=== PATIENT | female | born 1995 | race Caucasian/White ===

== ENCOUNTER 2018-05-25 16:04 | Emergency (ER) | payer OTHER ==
--- NOTE | 2018-05-25 17:09 | ER ---
Nurse's Notes [facility] Department Name: Vida Malcolm Age: 22 yrs Sex: Female : 1995 Arrival Date: 05/25/2018 Time: 16:07 Bed 13 Private MD: None, None Diagnosis: Unspecified abdominal pain Presentation: 05/25 16:27 Presenting complaint: Patient states: generalized abd cramping that began April 2018. aa5 Pt also reports N/V/D. Transition of care: patient was not received from another setting of care. Onset of symptoms was May 2018. Risk Assessment: Do you want to hurt yourself or someone else? Patient reports no desire to harm self or others. Initial Sepsis Screen: Does the patient meet any 2 criteria? No. Patient's initial sepsis screen is negative. Does the patient have a suspected source of infection? No. Patient's initial sepsis screen is negative. Care prior to arrival: None. 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 - Social history:: Smoking status: Patient/guardian denies using tobacco. - Ebola Screening: : No symptoms or risks identified at this time. Screenin:50 Abuse screen: Denies threats or abuse. Denies injuries from another. Nutritional jl7 screening: No deficits noted. Tuberculosis screening: No symptoms or risk factors identified. 17:38 Fall Risk None identified. jl7 Assessment: 16:50 General: Appears in no apparent distress. uncomfortable, Behavior is calm, cooperative, jl7 appropriate for age. Pain: Complains of pain in abdomen Pain does not radiate. Pain currently is 8 out of 10 on a pain scale. Quality of pain is described as crampy, Pain began April 2018 Is continuous. Neuro: Level of Consciousness is awake, alert, obeys commands, Oriented to person, place, time, situation. Cardiovascular: Patient's skin is warm and dry. Respiratory: Airway is patent Respiratory effort is even, unlabored, Respiratory pattern is regular, symmetrical. GI: Stools are reported to be normal. Last BM was May 25, 2018. Bowel sounds present X 4 quads. Abd is soft X 4 quads Abdomen is tender to palpation X 4 quads. Patient currently denies constipation, diarrhea. : Urine is cloudy, Reports burning with urination. EENT: No signs and/or symptoms were reported regarding the EENT system. Derm: Skin is pink, warm \T\ dry. Musculoskeletal: No signs and/or symptoms reported regarding the musculoskeletal system. 17:30 Reassessment: pt will be discharged after 15 min shot time. 7 Vital Signs: 16:28 BP 135 / 79; Pulse 85; Resp 16 S; Temp 98.5(TE); Pulse Ox 98% ; Weight 122.47 kg (R); aa5 Height 5 ft. 9 in. (175.26 cm) (R); Pain 8/10; 17:47 BP 134 / 73; Pulse 75; Resp 16; Pulse Ox 100% ; jl7 16:28 Body Mass Index 39.87 (122.47 kg, 175.26 cm) aa5 ED Course: 16:07 Patient arrived in ED. mr 16:08 None, None is Private Physician. mr 16:27 Triage completed. aa5 16:27 Arm band placed on. aa5 16:30 [facility]oc[facility] Dove [facility]C [facility]. snw 16:30 All [place] MD is Attending Physician. snw 16:34 Fran Ornelas RN is Primary Nurse. jl7 16:50 Patient has correct armband on for positive identification. Bed in low position. Call jl light in reach. Side rails up X 1. Pulse ox on. NIBP on. 17:01 Urine --Ancillary (enter results) Sent. 5 17:01 Urine Dipstick--Ancillary (enter results) Sent. 5 17:01 Urine Microscopic Only Sent. 5 17:03 Urine collected: clean catch specimen, clear. 5 17:48 No provider procedures requiring assistance completed. Patient did not have IV access [facility] during this emergency room visit. Administered Medications: 17:30 Drug: fentaNYL (PF) 50 mcg Route: IM; Site: left deltoid; jl7 17:47 Follow up: Response: No adverse reaction; Pain is decreased jl7 17:30 Drug: Phenergan 25 mg Route: IM; Site: right deltoid; jl7 17:47 Follow up: Response: No adverse reaction jl7 Outcome: 17:08 Discharge ordered by MD. ramos 17:48 Discharged to home ambulatory, with family. jl7 17:48 Condition: stable 17:48 Discharge instructions given to patient, family, Instructed on discharge instructions, follow up and referral plans. medication usage, Demonstrated understanding of instructions, follow-up care, medications, Prescriptions given X 2. 17:48 Patient left the ED. jl7 Signatures: Jocelyn Dove, DIRECTOR OF CARDIOPULMONARY SERVICES-C DIRECTOR OF CARDIOPULMONARY SERVICES-Csnw Griselda Elizalde Audri, RN RN Griselda Thacker Jahala, RN RN jl7 Corrections: (The following items were deleted from the chart) 16:29 16:28 PMHx: None; helena malik 17:36 03:00 fentaNYL (PF) 50 mcg IM in left deltoid jl7 jl7 17:37 17:00 fentaNYL (PF) 50 mcg IM in left deltoid jl7 jl7
--- NOTE | 2018-05-25 17:09 | EDPHYS ---
Physician Documentation [facility] Name: Vida Malcolm Age: 22 yrs Sex: Female : 1995 Arrival Date: 05/25/2018 Time: 16:07 Bed 13 Private MD: None, None ED Physician All [place] HPI: 05/25 17:11 This 22 yrs old Female presents to ER via Ambulatory with complaints of snw Abdominal Pain. 17:11 The patient presents with abdominal pain in the epigastric area, in the upper abdomen. snw Onset: The symptoms/episode began/occurred 2 month(s) ago, and became persistent. The symptoms do not radiate. Associated signs and symptoms: Pertinent positives: nausea and vomiting. The symptoms are described as crampy. Severity of pain: At its worst the pain was moderate. It is unknown whether or not the patient has had similar symptoms in the past. The patient has been recently seen by a physician: the patient's primary care provider, Dr. Armstrong yesterday, with similar presenting complaints, lab tests were done, but the patient's symptoms have persisted. 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 - Social history:: Smoking status: Patient/guardian denies using tobacco. - Ebola Screening: : No symptoms or risks identified at this time. ROS: 17:10 Constitutional: Negative for fever, chills, and weight loss, Eyes: Negative for injury, snw pain, redness, and discharge, ENT: Negative for injury, pain, and discharge, Neck: Negative for injury, pain, and swelling, Cardiovascular: Negative for chest pain, palpitations, and edema, Respiratory: Negative for shortness of breath, cough, wheezing, and pleuritic chest pain, Back: Negative for injury and pain, : Negative for injury, bleeding, discharge, and swelling, MS/Extremity: Negative for injury and deformity, Skin: Negative for injury, rash, and discoloration, Neuro: Negative for headache, weakness, numbness, tingling, and seizure. 17:10 Abdomen/GI: Positive for abdominal pain, nausea, vomiting. Exam: 17:10 Constitutional: This is a well developed, obese patient who is awake, alert, and in no snw acute distress. Head/Face: Normocephalic, atraumatic. Eyes: Pupils equal round and reactive to light, extra-ocular motions intact. Lids and lashes normal. Conjunctiva and sclera are non-icteric and not injected. Cornea within normal limits. Periorbital areas with no swelling, redness, or edema. ENT: Nares patent. No nasal discharge, no septal abnormalities noted. Tympanic membranes are normal and external auditory canals are clear. Oropharynx with no redness, swelling, or masses, exudates, or evidence of obstruction, uvula midline. Mucous membranes moist. Neck: Trachea midline, no thyromegaly or masses palpated, and no cervical lymphadenopathy. Supple, full range of motion without nuchal rigidity, or vertebral point tenderness. No Meningismus. Chest/axilla: Normal chest wall appearance and motion. Nontender with no deformity. No lesions are appreciated. Cardiovascular: Regular rate and rhythm with a normal S1 and S2. No gallops, murmurs, or rubs. Normal PMI, no JVD. No pulse deficits. Respiratory: Lungs have equal breath sounds bilaterally, clear to auscultation and percussion. No rales, rhonchi or wheezes noted. No increased work of breathing, no retractions or nasal flaring. Back: No spinal tenderness. No costovertebral tenderness. Full range of motion. Skin: Warm, dry with normal turgor. Normal color with no rashes, no lesions, and no evidence of cellulitis. MS/ Extremity: Pulses equal, no cyanosis. Neurovascular intact. Full, normal range of motion. Neuro: Awake and alert, GCS 15, oriented to person, place, time, and situation. Cranial nerves II-XII grossly intact. Motor strength 5/5 in all extremities. Sensory grossly intact. Cerebellar exam normal. Normal gait. Psych: Awake, alert, with orientation to person, place and time. Behavior, mood, and affect are within normal limits. 17:10 Abdomen/GI: Inspection: obese Bowel sounds: normal, Palpation: mild abdominal tenderness, in the umbilical area, right upper quadrant and left upper quadrant. Vital Signs: 16:28 BP 135 / 79; Pulse 85; Resp 16 S; Temp 98.5(TE); Pulse Ox 98% ; Weight 122.47 kg (R); aa5 Height 5 ft. 9 in. (175.26 cm) (R); Pain 8/10; 17:47 BP 134 / 73; Pulse 75; Resp 16; Pulse Ox 100% ; jl7 16:28 Body Mass Index 39.87 (122.47 kg, 175.26 cm) aa5 MDM: 16:32 Patient medically screened. snw 17:11 Data reviewed: vital signs, nurses notes. Data interpreted: Pulse oximetry: on room air snw is 98 %. Interpretation: normal. Counseling: I had a detailed discussion with the patient and/or guardian regarding: the historical points, exam findings, and any diagnostic results supporting the discharge/admit diagnosis, lab results, the need for outpatient follow up, to return to the emergency department if symptoms worsen or persist or if there are any questions or concerns that arise at home. Special discussion: Based on the patient's Hx, exam, and Dx evaluation, there is no indication for emergent surgery or inpatient Tx. It is understood by the patient/guardian that if the Sx's persist or worsen they need to return immediately for re-evaluation. Based on the history and exam findings, there is no indication for further emergent testing or inpatient evaluation. I discussed with the patient/guardian the need to see the primary care provider for further evaluation of the symptoms. 17:12 ED course: Pt had labs drawn for same c/o yest. Symptoms no different. Pt VSS. Will snw treat pain/nausea and give pt time to f/u. 05/25 16:31 Order name: Urine Microscopic Only snw 05/25 16:56 Order name: Urine Dipstick--Ancillary (enter results) eb 05/25 16:31 Order name: Urine Test (obtain specimen); Complete Time: 16:50 snw 05/25 16:56 Order name: Urine --Ancillary (enter results) 05/25 16:31 Order name: Urine Dipstick-Ancillary (obtain specimen); Complete Time: 16:50 snw Administered Medications: 17:30 Drug: fentaNYL (PF) 50 mcg Route: IM; Site: left deltoid; jl7 17:47 Follow up: Response: No adverse reaction; Pain is decreased jl7 17:30 Drug: Phenergan 25 mg Route: IM; Site: right deltoid; jl7 17:47 Follow up: Response: No adverse reaction jl7 Disposition: 18:59 Co-signature as Attending Physician, All [place] MD I agree with the assessment and kdr plan of care. Disposition: 05/25/18 17:08 Discharged to Home. Impression: Unspecified abdominal pain. - Condition is Stable. - Discharge Instructions: Abdominal Pain, Adult, Biliary Colic, Adult, Fat and Cholesterol Restricted Diet. - Prescriptions for Bentyl 20 mg Oral Tablet - take 1 tablet by ORAL route every 6 hours As needed; 20 tablet. Zofran 4 mg Oral Tablet - take 1 tablet by ORAL route every 12 hours As needed; 20 tablet. - Work release form, Medication Reconciliation Form, Thank You Letter, Antibiotic Education, Prescription Opioid Use form. - Follow up: Private Physician; When: 2 - 3 days; Reason: Recheck today's complaints, Continuance of care, Re-evaluation by your physician. Follow up: Emergency Department; When: As needed; Reason: Worsening of condition. Signatures: Dispatcher [employer] EDIA All [place] MD MD [facility] Jocelyn Dove, GARMENT PARTS CUTTER MACHINE-C GARMENT PARTS CUTTER MACHINE-Csnw Kathy White, RN RN aa5 Fran Ornelas RN RN jl7 Corrections: (The following items were deleted from the chart) 16:29 16:28 PMHx: None; helena malik 17:48 17:08 05/25/2018 17:08 Discharged to Home. Impression: Unspecified abdominal pain. jl7 Condition is Stable. Forms are Medication Reconciliation Form, Thank You Letter, Antibiotic Education, Prescription Opioid Use. Follow up: Private Physician; When: 2 - 3 days; Reason: Recheck today's complaints, Continuance of care, Re-evaluation by your physician. Follow up: Emergency Department; When: As needed; Reason: Worsening of condition. snw
[2018-05-25] MEDS ORDERED: FENTANYL CITR 100 MCG/2 ML ONE (17:24)
[2018-05-25] MEDS ORDERED: PROMETHAZINE HCL 50 MG/ML AMP IM ONE (17:25)
[2018-05-25 17:46] LABS: Urine Blood NEGATIVE (NEG); Urine Glucose NEGATIVE (NEG); Urine Protein NEGATIVE (NEG)
[2018-05-25 17:49] LABS: Urine Bacteria <20 /HPF (<20); Urine Culture Reflex Order NOT NEEDED; Urine RBC <5 /HPF (NONE SEEN)
[2018-05-25 17:50] LABS: Urine Mucus 2+ /HPF (NONE SEEN)
== END 2018-05-25 17:48 | disposition home or self-care (01) ==
LOC: ER 16:04
DX: R10.9 Unspecified abdominal pain (principal); F31.9 Bipolar disorder, unspecified; F32.9 Major depressive disorder, single episode, unspecified; F90.9 Attention-deficit hyperactivity disorder, unspecified type
CPT/HCPCS: 81003; 81015; 81025; 96372; 99284; J2550; J3010

== ENCOUNTER 2024-10-01 05:38 | Emergency (ER) | payer OTHER, SELFPAY ==
--- OUTSIDE RECORDS SUMMARY | 2024-10-01 05:40 | XMS REPORT | Continuity of Care Document ---
Author Name Unknown Address [address] [facility] [address] [place] [address] [facility] Address [address] [facility] [address] [place] [address] Care Team Providers Care Head Of Marketing Analytics Name Role Phone PCP, PATIENT DOES NOT HAVE A Primary Care Physic dagmar Unavailable JAYCE LOPEZ Attending Clinician Unavailable JOHN JAYCECORDELIA MONCADA Attending Clinician Unavailable Doctor Unassigned, [place] Attending Clinician U GABBY Recinos Attending Clinician Unavailable AMBREEN_FARHANA Attending Clinician Unavailable Gabby Carney PA-C Attending Clinician [phone], [facility] Attending Clinician Unavailable DYLON CORREA Attending Clinician Unavail able ANNA GATES Attending Clinician Unavailable Dylon Correa DO Attending Clinician [phone] Akincarolyn Emily OLIVIER Attending Clinician + EMILY SAUL Attending Clinician Unavail able [facility] UnaJacy Porter MD Attending Clinician [phone] Hallie Ibrahim Attending Clinician + [phone] HALLIE ASHER Attending Clinician Unavailab 3, [facility] Room Attending Clinician Unavailchantel Mills MD, Lopez Attending Clinician + JACY GREER Admitting Clinician Unavailyeimi ANTONIO Admitting Clinician Unavailable Jacy Greer MD Admitting Clinician [phone] Payers Payer Name Policy Type Policy Number Effective Date Expirati on Date Source [facility] [id number] 2020 00:00:00 Problems Condition Name Condition Details Condition Category Status Onset Date Resolution Date Last Treatment Date Treating Clinician Comments Source Well woman exam Well woman exam Disease Active 11-07 00:00: 00 [facility] Obesity (BMI 30-39.9) Obesity (BMI 30-39.9) Disease Active 11-07 00:00: 00 [facility] Routine follow-up Routine follow-up Disease Active 10-17 00:00: 00 [facility] History of tubal ligation History of tubal ligation Disease Active 09-25 00:00: 00 [facility] History of depression History of depression Disease Active 2019-09 00:00: 00 [facility] History of anxiety History of anxiety Disease Active 2019-09 00:00: 00 [facility] History of posttrauma tic stress disorder (PTSD) History of posttrauma tic stress disorder (PTSD) Disease Active 2019-09 00:00: 00 [facility] History of schizophre edgardo History of schizophre edgardo Disease Active 2019-09 00:00: 00 [facility] History of bipolar disorder History of bipolar disorder Disease Active 2019-09 00:00: 00 Overview: Formattin g of this note might be different from the original. Reports she was on meds d/c when she became [facility] Allergies, Adverse Reactions, Alerts Allergy Name Allergy Type Status Severity Reaction(s) Onset Date Inactive Date Treating Clinician Comments Source NO KNOWN ALLERGIE S Drug Class Active [facility] Social History Social Habit Start Date Stop Date Quantity Comments Source Gender identity [facility] Exposure to SARS-CoV-2 (event) 2021-10-19 00:00:00 2021-11-18 13:58:00 Not sure [facility] History of Social function 2021-11-18 00:00:00 2021-11-18 00:00:00 [facility] Tobacco use and exposure 2020-08-25 00:00:00 2020-08-25 00:00:00 Smokeless tobacco non-user [facility] Alcohol intake 2020-08-25 00:00:00 2020-08-25 00:00:00 Ex-drinker (finding) [facility] Sex Assigned At 1995 00:00:00 1995 00:00:00 [facility] Smoking Status Start Date Stop Date Source Never smoked tobacco [facility] Medications Ordered Medication Name Filled Medication Name Start Date Stop Date Current Medication? Ordering Clinician Indication Dosage Frequency Signature (SIG) Comments Components Source traZODone 100 mg tablet 03-16 18:07: 58 03-16 00:00 :00 No trazodone 100 mg tablet Take 3 tablets every day by oral route. [facility] QUEtiapine (SEROQUEL) 25 mg tablet 03-16 15:24: 32 Yes 25mg Take 1 tablet by mouth in the morning and 1 tablet in the evening. [facility] traZODone 100 mg tablet 11-18 14:29: 38 Yes trazodone 100 mg tablet Take 3 tablets every day by oral route. [facility] citalopram (CELEXA) 40 mg tablet 11-18 14:06: 57 11-18 00:00 :00 No Celexa 40 mg tablet Take 1 tablet every day by oral route. [facility] aripiprazol e (ABILIFY DISCMELT ORAL) 09-30 00:00: 00 Yes [facility] citalopram 20 mg tablet 11-05 00:00: 00 11-18 00:00 :00 No [facility] vitamin w/FA tablet 09-28 00:00: 00 11-18 00:00 :00 No [id number] 1{tbl} Take 1 tablet by mouth daily. [facility] docusate calcium 240 mg capsule 09-28 00:00: 00 11-18 00:00 :00 No [id number] 240mg Take 1 capsule by mouth once daily as needed for Constipati on. [facility] ferrous sulfate 325 mg (65 mg iron) tablet 09-28 00:00: 00 11-18 00:00 :00 No [id number] 325mg Take 1 tablet by mouth 2 (two) times daily. [facility] ibuprofen 600 mg tablet 09-28 00:00: 00 11-18 00:00 :00 No [id number] 600mg Take 1 tablet by mouth every 6 (six) hours as needed (Pain). Take with food or milk. [facility] vitamin w/FA tablet 09-28 00:00: 00 11-18 00:00 :00 No [id number] 1{tbl} Take 1 tablet by mouth daily. [facility] Immunizations Ordered Immunization Name Filled Immunization Name Date Status Comments Source HPV9 2023-03-16 00:00:00 Completed [facility] Influenza Virus Vaccine Quad IM, Preserv and ABX Free 6 MO-64 YRS 2021-11-18 00:00:00 Completed [facility] Influenza Virus Vaccine Quad IM, Preserv and ABX Free 6 MO-64 YRS 2021-11-18 00:00:00 Completed [facility] SARS-COV-2 COVID-19 PFIZER VACCINE 2020-12-17 00:00:00 Completed [facility] SARS-COV-2 COVID-19 PFIZER VACCINE 2020-12-17 00:00:00 Completed [facility] SARS-COV-2 COVID-19 PFIZER VACCINE 2020-11-26 00:00:00 Completed [facility] SARS-COV-2 COVID-19 PFIZER VACCINE 2020-11-26 00:00:00 Completed [facility] Influenza Virus Vaccine Quad .5 mL IM 6+ MO 2020-08-06 00:00:00 Completed [facility] TDAP (ADACEL) VACCINE 2020-08-06 00:00:00 Completed [facility] Influenza Virus Vaccine Quad .5 mL IM 6+ MO 2020-08-06 00:00:00 Completed [facility] TDAP (ADACEL) VACCINE 2020-08-06 00:00:00 Completed [facility] Influenza Virus Vaccine Quad .5 mL IM 6+ MO (FLUZONE/FLULAVAL/F LUARIX) Unknown Completed [facility] TDAP (ADACEL) VACCINE Unknown Completed [facility] SARS-COV-2 COVID-19 PFIZER VACCINE Unknown Completed [facility] Influenza Virus Vaccine Quad IM, Preserv and ABX Free 6 MO-64 YRS (FLUCELVAX) Unknown Completed [facility] HPV9 Unknown Completed [facility] Influenza Virus Vaccine Quad .5 mL IM 6+ MO (FLUZONE/FLULAVAL/F LUARIX) Unknown Completed [facility] TDAP (ADACEL) VACCINE Unknown Completed [facility] SARS-COV-2 COVID-19 PFIZER VACCINE Unknown Completed [facility] Influenza Virus Vaccine Quad IM, Preserv and ABX Free 6 MO-64 YRS (FLUCELVAX) Unknown Completed [facility] Influenza Virus Vaccine Quad .5 mL IM 6+ MO (FLUZONE/FLULAVAL/F LUARIX) Unknown Completed [facility] TDAP (ADACEL) VACCINE Unknown Completed [facility] Influenza Virus Vaccine Quad .5 mL IM 6+ MO (FLUZONE/FLULAVAL/F LUARIX) Unknown Completed [facility] TDAP (ADACEL) VACCINE Unknown Completed [facility] Influenza Virus Vaccine Quad .5 mL IM 6+ MO (FLUZONE/FLULAVAL/F LUARIX) Unknown Completed [facility] TDAP (ADACEL) VACCINE Unknown Completed [facility] Influenza Virus Vaccine Quad .5 mL IM 6+ MO (FLUZONE/FLULAVAL/F LUARIX) Unknown Completed [facility] TDAP (ADACEL) VACCINE Unknown Completed [facility] Influenza Virus Vaccine Quad .5 mL IM 6+ MO (FLUZONE/FLULAVAL/F LUARIX) Unknown Completed [facility] TDAP (ADACEL) VACCINE Unknown Completed [facility] Vital Signs Vital Name Observation Time Observation Value Comments Jluis colon Systolic blood pressure 2023-03-16 20:14:00 121 mm[Hg] [facility] Diastolic blood pressure 2023-03-16 20:14:00 82 mm[Hg] [facility] Heart rate 2023-03-16 20:14:00 81 /min Unive [facility] Body temperature 2023-03-16 20:14:00 36.78 Chanell [facility] Respiratory rate 2023-03-16 20:14:00 20 /min [facility] Body height 2023-03-16 20:14:00 175.3 cm [facility] Body weight 2023-03-16 20:14:00 131.18 kg [facility] BMI 2023-03-16 20:14:00 42.71 kg/m2 [facility] Oxygen saturation in Arterial blood by Pulse oximetry 2023-03-16 20:14:00 97 /min [facility] Systolic blood pressure 2021-11-18 19:27:00 126 mm[Hg] [facility] Diastolic blood pressure 2021-11-18 19:27:00 85 mm[Hg] [facility] Heart rate 2021-11-18 19:26:00 81 /min Unive [facility] Body temperature 2021-11-18 19:26:00 36.78 Chanell [facility] Respiratory rate 2021-11-18 19:26:00 20 /min [facility] Body height 2021-11-18 19:26:00 175.3 cm [facility] Body weight 2021-11-18 19:26:00 135.535 kg [facility] BMI 2021-11-18 19:26:00 44.13 kg/m2 [facility] Oxygen saturation in Arterial blood by Pulse oximetry 2021-11-18 19:26:00 100 /min [facility] Procedures Procedure Date / Time Performed Performing Clinician Source GARDASIL 9 (HPV 9V) VACCINE 2023-03-16 20:40:58 Jayce Lopez [facility] HEPATITIS B SURFACE ANTIGEN 2021-11-18 20:09:00 Gabby Carney [facility] HCV ANTIBODY 2021-11-18 20:09:00 [facility] POCT TEST 2021-11-18 19:35:00 Bertram Carney [facility] GC & CHLAMYDIA AMPLIFIED ASSAY 2021-11-18 19:35:00 Gabby Carney [facility] LAB ONLY PAP SMEAR-LIQUID BASED 2021-11-18 19:35:00 Gabby Carney [facility] TRICHOMONAS AMPLIFIED ASSAY 2021-11-18 19:35:00 Gabby Carney [facility] PAP SMEAR-LIQUID BASED-CP 2021-11-18 19:35:00 Gabby Carney [facility] FLU VACC ([id number]), 2-64 YRS, .5ML, IM, QUAD (FLUCELVAX) 2021-11-18 19:33:51 Gabby Carney [facility] Encounters Start Date/Time End Date/Time Encounter Type Admission Type Attending Clinicians Care Facility Care Department Encounter ID Source 2021-07-04 18:44:06 Outpatient P [facility] ISABELLE [id number] [facility] 2021-07-04 18:44:04 Outpatient [facility] [id number] [facility] 2024-03-26 15:00:00 2024-03-26 15:00:00 Outpatient JAYCE MILLER VIEN [facility] [id number] [facility] 2023-10-25 15:00:00 2023-10-25 15:00:00 Outpatient JAYCE MILLER [facility] [id number] [facility] 2023-09-16 15:00:00 2023-09-16 15:00:00 Outpatient R [facility] [id number] [facility] 2023-05-10 15:30:00 2023-05-10 15:30:00 Outpatient JAYCE MILLER [facility] [id number] [facility] 2023-04-25 15:00:00 2023-04-25 15:00:00 Outpatient R JAYCE LOPEZ [facility] [id number] [facility] 2023-04-21 15:00:00 2023-04-21 15:00:00 Outpatient R [facility] [id number] [facility] 2023-04-01 00:00:00 2023-04-01 00:00:00 Patient Secure Msg Doctor Unassigned, [place] [facility] [id number] 350.1.13.10 4.2.7.2.686 [id number] [facility] 2023-03-16 15:00:00 2023-03-16 15:42:39 Outpatient R JAYCE LOPEZ [facility] [id number] [facility] 2023-03-16 15:00:00 2023-03-16 15:42:39 Office Visit Jayce Lopez Saud [facility] [id number] 350.1.13.10 4.2.7.2.686 [id number] [facility] 2022-11-18 13:30:00 2022-11-18 13:30:00 Outpatient R STEPHANYMICHELLEGABBY [facility] [id number] [facility] 2022-03-30 12:26:00 2022-03-30 12:26:00 Outpatient AMBREEN_GRISELDA SOLIS [facility] [id number] [facility] Program 2021-11-27 00:00:00 2021-11-27 00:00:00 Patient Secure Msg Nieves [facility] 1.2.840.114 350.1.13.10 4.2.7.2.686 [id number] [facility] 2021-11-18 15:15:00 2021-11-18 15:30:00 Veterinary Surgery Technician Visit 2, [facility] Nieves Gabby [facility] 1.2.840.114 350.1.13.10 4.2.7.2.686 [id number] [facility] 2021-11-18 15:15:00 2021-11-18 15:15:00 Outpatient Uriel CARNEY GABBY [facility] [id number] [facility] 2021-11-18 14:00:00 2021-11-18 15:01:11 Office Visit Gabby Carney [facility] 1.2.840.114 350.1.13.10 4.2.7.2.686 [id number] [facility] 2021-11-18 14:00:00 2021-11-18 15:01:11 Outpatient Uriel CARNEY [facility] [id number] [facility] 2021-11-18 14:00:00 2021-11-18 15:01:11 [facility] [id number] 2021-11-11 10:00:00 2021-11-11 10:00:00 Outpatient Uriel CARNEY [facility] [id number] [facility] 2021-10-16 16:20:00 2021-10-16 16:20:00 Outpatient DYLON RYAN [facility] [id number] [facility] 2021-10-16 11:20:00 2021-10-16 11:20:00 Outpatient Uriel [facility] [id number] [facility] 2021-10-16 11:20:00 2021-10-16 11:20:00 Outpatient DYLON RYAN [facility] [id number] [facility] 2021-10-16 11:00:00 2021-10-16 11:00:00 Outpatient DYLON RYAN [facility] [id number] [facility] 2020-12-17 12:20:00 2020-12-17 12:20:00 Outpatient ANNA FRAIRE [facility] [id number] [facility] 2020-11-26 12:20:00 2020-11-26 12:20:00 Outpatient DYLON CORREA [facility] [id number] [facility] 2020-11-25 00:00:00 2020-11-25 00:00:00 Patient Outreach Rohit Dylon Navin [facility] 1.840.114 350.1.13.10 4.2.7.2.686 [id number] [facility] 2020-11-17 00:00:00 2020-11-17 00:00:00 Telephone Emily Saul [facility] WATER REUSE PROGRAM MANAGER [facility] CHILD [facility] 1.840.114 350.1.13.10 4.2.7.2.686 [id number] [facility] 2020-11-11 00:00:00 2020-11-11 00:00:00 Telephone Emily Saul [facility] WATER REUSE PROGRAM MANAGER [facility] 1.840.114 350.1.13.10 4.2.7.2.686 [id number] [facility] 2020-11-07 15:02:22 2020-11-07 15:59:49 Office Visit Emily Saul [facility] WATER REUSE PROGRAM MANAGER [facility] 1.84.114 350.1.13.10 4.2.7.2.686 [id number] [facility] 2020-11-07 15:15:00 2020-11-07 15:15:00 Outpatient R EMILY SAUL [facility] [id number] [facility] 2020-10-17 10:43:06 2020-10-17 11:16:03 Routine Visit Emily Saul [facility] WATER REUSE PROGRAM MANAGER [facility]ILD [facility] 1.2840.114 350.1.13.10 4.2.7.2.686 [id number] [facility] 2020-10-17 10:45:00 2020-10-17 10:45:00 Outpatient R EMILY SAUL [facility] [id number] [facility] 2020-10-06 00:00:00 2020-10-06 00:00:00 Patient Secure Msg Doctor Unassigned, [place] [facility] WATER REUSE PROGRAM MANAGER [facility] ..840.114 350.1.13.10 4.2.7.2.686 [id number] [facility] 2020-10-03 09:23:46 2020-10-03 10:04:08 Nurse Visit Visit, [facility] Nurse Emily Saul [facility] CHILD [facility] [id number] 350.1.13.10 4.2.7.2.686 [id number] [facility] 2020-10-03 09:30:00 2020-10-03 09:30:00 Outpatient R EMILY SAUL [facility] [id number] [facility] 2020-09-25 19:20:00 2020-09-25 19:23:00 Hospital Encounter Jacy Greer [facility] ..840.114 350.1.13.10 4.2.7.2.686 [id number] [facility] 2020-09-24 08:00:00 2020-09-24 08:00:00 Outpatient R [facility] [id number] [facility] 2020-09-23 12:46:17 2020-09-23 13:17:15 Routine Visit Emily Saul Roshunda R [facility] 840.114 350.1.13.10 4.2.7.2.686 [id number] [facility] 2020-09-23 12:45:00 2020-09-23 12:45:00 Outpatient R HALLIE ASHER [facility] [id number] [facility] 2020-09-17 13:40:00 2020-09-17 13:40:00 Outpatient R [facility] [id number] [facility] 2020-09-15 13:15:27 2020-09-15 13:51:08 Routine Visit AsherHallie Damilola C [facility] WATER REUSE PROGRAM MANAGER [facility] CHILD [facility] 1..840.114 350.1.13.10 4.2.7.2.686 [id number] [facility] 2020-09-15 12:45:00 2020-09-15 12:45:00 Outpatient R EMILY SAUL [facility] [id number] [facility] 2020-09-11 00:00:00 2020-09-11 00:00:00 Patient Secure Msg Doctor Unassigned, [place] [facility] 1.2.840.114 350.1.13.10 4.2.7.2.686 [id number] [facility] 2020-09-08 15:55:13 2020-09-08 16:41:20 Routine Visit Emily Saul [facility] WATER REUSE PROGRAM MANAGER [facility] CHILD [facility] 1..840.114 350.1.13.10 4.2.7.2.686 [id number] [facility] 2020-09-08 15:45:00 2020-09-08 15:45:00 Outpatient EMILY FELIZ [facility] [id number] [facility] 2020-09-04 00:00:00 2020-09-04 00:00:00 Orders Only Doctor Unassigned, [place] [facility] 1.840.114 350.1.13.10 4.2.7.2.686 [id number] [facility] 2020-09-03 00:00:00 2020-09-03 00:00:00 Patient Secure Msg Doctor Unassigned, [place] [facility] WATER REUSE PROGRAM MANAGER [facility] CHILD [facility] 1.840.114 350.1.13.10 4.2.7.2.686 [id number] [facility] 2020-09-03 00:00:00 2020-09-03 00:00:00 Telephone Emily Saul [facility] WATER REUSE PROGRAM MANAGER [facility] CHILD [facility] 1.840.114 350.1.13.10 4.2.7.2.686 [id number] [facility] 2020-09-02 10:45:53 2020-09-02 11:45:53 Veterinary Surgery Technician Visit 3, [facility] 1..114 350.1.13.10 4.2.7.2.686 [id number] [facility] 2020-09-02 11:00:00 2020-09-02 11:00:00 Outpatient P [facility] [id number] [facility] 2020-09-02 00:00:00 2020-09-02 00:00:00 Abstract Emily Saul [facility] WATER REUSE PROGRAM MANAGER [facility] CHILD [facility] 1.0.114 350.1.13.10 4.2.7.2.686 [id number] [facility] 2020-09-01 00:00:00 2020-09-01 00:00:00 Patient Secure Msg Doctor Unassigned, [place] [facility] WATER REUSE PROGRAM MANAGER [facility] CHILD [facility] 1.840.114 350.1.13.10 4.2.7.2.686 [id number] [facility] 2020-08-26 00:00:00 2020-08-26 00:00:00 Patient Secure Msg Doctor Unassigned, [place] [facility] WATER REUSE PROGRAM MANAGER [facility] CHILD [facility] 1.2.840.114 350.1.13.10 4.2.7.2.686 [id number] [facility] 2020-08-25 13:14:41 2020-08-25 13:44:41 Initial Visit Emily Saul [facility] WATER REUSE PROGRAM MANAGER [facility] CHILD [facility] 1.2.840.114 350.1.13.10 4.2.7.2.686 [id number] [facility] 2020-08-25 13:00:00 2020-08-25 13:00:00 Outpatient R EMILY SAUL [facility] [id number] [facility] 2020-08-25 00:00:00 2020-08-25 00:00:00 Orders Only Doctor Unassigned, [place] [facility] 1.2.840.114 350.1.13.10 4.2.7.2.686 [id number] [facility] Results Test Description Test Time Test Comments Results Result Co mments Source [facility] [id number] 23:00:38 * Test Item Value Reference Range Interpretation Comme nts HBsAg Semi-Quantitative (claudia t code = 5195-3) Negative Negative [facility] [id number] 19:35:00* Test Item Value Reference Range Interpretation Comme nts POCT PREG (test code = 1605) Negative On board controls acceptable with C Line (test code = 3574) Yes POCT PREG LOT # (test code = 3575) POCT PREG TEST DATE ( test code = 3576) [facility]
--- NOTE | 2024-10-01 05:59 | EDPHYS ---
Physician Documentation [facility] Name: Viad Malcolm Age: 29 yrs Sex: Female : 1995 Arrival Date: 10/01/2024 Time: 05:38 Bed Waiting Private MD: ED Physician Isaac Kay HPI: 10/01 07:52 This 29 yrs old Female presents to ER via Ambulatory with complaints of Ear Pain. ms3 07:52 29 year old female who presents to the emergency department with a chief complaint of ms3 left ear pain. She reports that around midnight she noticed her ear was flat, hot, swollen, and she is experiencing significant hearing loss in that ear. She attempted to use peroxide without relief. The patient is recovering from a recent sinus infection and wonders if it is related. She describes the pain as a 7 out of 10 and notes that laying down exacerbates the discomfort. Recently, she has begun to feel a tickling sensation and popping in the affected ear. . 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 - Infectious Disease History:: Denies. - Social history:: Smoking status: Patient denies any tobacco usage or history of. Patient/guardian denies using alcohol, street drugs. ROS: 07:52 Constitutional: Negative for fever, and chills. Cardiovascular: Negative for chest ms3 pain, and palpitations. Respiratory: Negative for shortness of breath, cough, wheezing, and pleuritic chest pain, Abdomen/GI: Negative for abdominal pain, nausea, vomiting, diarrhea, and constipation, 07:52 MS/Extremity: Negative for injury and deformity, Skin: Negative for injury, rash, and discoloration, 07:52 ENT: Positive for ear pain, Exam: 07:52 Constitutional: This is a well developed, well nourished patient who is awake, alert, ms3 and in no acute distress. Cardiovascular: Regular rate and rhythm with a normal S1 and S2. No gallops, murmurs, or rubs. Normal PMI, no JVD. No pulse deficits. Respiratory: Lungs have equal breath sounds bilaterally, clear to auscultation and percussion. No rales, rhonchi or wheezes noted. No increased work of breathing, no retractions or nasal flaring. Abdomen/GI: Soft, non-tender, with normal bowel sounds. No distension or tympany. No guarding or rebound. No evidence of tenderness throughout. Skin: Warm, dry with normal turgor. Normal color with no rashes, no lesions, and no evidence of cellulitis. MS/ Extremity: Pulses equal, no cyanosis. Neurovascular intact. Full, normal range of motion. 07:52 ENT: Ear canal(s): erythema, that is moderate, of the left canal, Vital Signs: 05:55 BP 159 / 90; Pulse 70; Resp 17 S; Temp 98.1(O); Pulse Ox 100% on R/A; Weight 127.01 kg lg3 (R); Height 5 ft. 9 in. (R); Pain 7/10; 05:55 Body Mass Index 41.35 (127.01 kg, 175.26 cm) lg3 05:55 Pain Scale: Adult lg3 MDM: 05:59 Medical Screening Exam initiated ms3 07:52 Differential diagnosis: otitis media, otitis externa, acute otalgia. Data reviewed: ms3 vital signs, nurses notes, and as a result, I will discharge patient. Counseling: I had a detailed discussion with the patient and/or guardian regarding the historical points, exam findings, and any diagnostic results supporting the discharge/admit diagnosis, the need for outpatient follow up, to return to the emergency department if symptoms worsen or persist or if there are any questions or concerns that arise at home. Special discussion: I discussed with the patient/guardian in detail that at this point there is no indication for admission to the hospital. It is understood, however, that if the symptoms persist or worsen the patient needs to return immediately for re-evaluation. ED course: Discussed physical exam findings with patient. Patient given prescription for amoxicillin. Patient to follow-up with her primary care physician 2 to 3 days. Patient understands and agrees with plan. All questions were answered. Return precautions discussed include worsening symptoms, or any other concerns.. Administered Medications: No medications were administered Disposition Summary: 10/01/24 05:59 Discharge Ordered Notes: Location: Home ms3 Condition: Stable ms3 Diagnosis - Unspecified otitis externa, left ear ms3 Followup: ms3 - With: Petey Ravi DO - When: 2 - 3 days - Reason: Recheck today's complaints Discharge Instructions: - Discharge Summary Sheet ms3 - Otitis Externa, [id number] ms3 Forms: - Medication Reconciliation Form ms3 - Antibiotic Education ms3 - Prescription Opioid Use ms3 - Patient Portal Instructions ms3 - Leadership Thank You Letter ms3 Prescriptions: - [id number]-[id number] 3.5-10,000-1 mg/mL-unit/mL-% Otic solution - instill 3 drop OTIC route 4 times per day for 10 days; 10 milliliter; Refills: ms3 0, Product Selection Permitted Signatures: Juliana Viveros RN RN lg3 Isaac Kay DO DO ms3
--- NOTE | 2024-10-01 05:59 | ER ---
Nurse's Notes [facility] Name: Vida Malcolm Age: 29 yrs Sex: Female : 1995 Arrival Date: 10/01/2024 Time: 05:38 Bed Waiting Private MD: Diagnosis: Unspecified otitis externa, left ear Presentation: 10/01 05:55 Chief complaint: Patient states: left ear pain. onset 0100. Coronavirus screen: Client lg3 denies travel out of the [place] in the last 14 days. At this time, the client does not indicate any symptoms associated with coronavirus-19. Ebola Screen: No symptoms or risks identified at this time. Initial Sepsis Screen: Does the patient meet any 2 criteria? No. Patient's initial sepsis screen is negative. Does the patient have a suspected source of infection? No. Patient's initial sepsis screen is negative. Risk Assessment: Do you want to hurt yourself or someone else? Patient reports no desire to harm self or others. Onset of symptoms was October 01, 2024. 05:55 Method Of Arrival: Ambulatory lg3 05:55 Acuity: TIFFANY 5 lg3 Triage Assessment: 05:57 General: Appears in no apparent distress. uncomfortable, Behavior is calm, cooperative. lg3 Pain: Complains of pain in left ear. EENT: Reports pain in left ear. Neuro: No deficits noted. Bruno Agitation-Sedation Scale (RASS): 0 - Alert and Calm Level of Consciousness is awake, alert, obeys commands, Oriented to person, place, time, situation. Cardiovascular: No deficits noted. Denies chest pain, shortness of breath, Capillary refill < 3 seconds Clubbing of nail beds is absent JVD is absent Patient's skin is warm and dry. Respiratory: No deficits noted. Airway is patent Respiratory effort is even, unlabored, Respiratory pattern is regular, symmetrical. GI: No deficits noted. No signs and/or symptoms were reported involving the gastrointestinal system. : No signs and/or symptoms were reported regarding the genitourinary system. Derm: No deficits noted. No signs and/or symptoms reported regarding the dermatologic system. Skin is intact, is healthy with good turgor, Skin is dry, Skin is normal, Skin temperature is warm. Musculoskeletal: No deficits noted. No signs and/or symptoms reported regarding the musculoskeletal system. Circulation, motion, and sensation intact. Range of motion: intact in all extremities. 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 - Infectious Disease History:: Denies. - Social history:: Smoking status: Patient denies any tobacco usage or history of. Patient/guardian denies using alcohol, street drugs. Screenin:01 [facility] ED Fall Risk Assessment (Adult) History of falling in the last 3 months, lg3 including since admission No falls in past 3 months (0 pts) Confusion or Disorientation No (0 pts) Intoxicated or Sedated No (0 pts) Impaired Gait No (0 pts) Mobility Assist Device Used No (0 pt) Altered Elimination No (0 pt) Score/Fall Risk Level 0 - 2 = Low Risk Oriented to surroundings, Maintained a safe environment, Educated pt \T\ family on fall prevention, incl call for assistance when getting out of bed, Assessed \T\ reinforced patient's understanding of fall precautions. Abuse screen: Denies threats or abuse. Denies injuries from another. Nutritional screening: No deficits noted. Tuberculosis screening: No symptoms or risk factors identified. Assessment: 06:01 General: see triage assessment. lg3 Vital Signs: 05:55 BP 159 / 90; Pulse 70; Resp 17 S; Temp 98.1(O); Pulse Ox 100% on R/A; Weight 127.01 kg lg3 (R); Height 5 ft. 9 in. (R); Pain 7/10; 05:55 Body Mass Index 41.35 (127.01 kg, 175.26 cm) lg3 05:55 Pain Scale: Adult lg3 ED Course: 05:39 Patient arrived in ED. [email or web address] 05:40 Isaac Kay DO is Attending Physician. ms3 05:57 Triage completed. lg3 05:57 Arm band placed on right wrist. lg3 05:58 Petey Ravi DO is Referral Physician. ms3 06:01 Patient has correct armband on for positive identification. lg3 06:01 No provider procedures requiring assistance completed. Patient did not have IV access lg3 during this emergency room visit. Administered Medications: No medications were administered Medication: 06:01 VIS not applicable for this client. lg3 Outcome: 05:59 Discharge ordered by MD. ms3 06:01 Discharged to home ambulatory, lg3 06:01 Condition: stable 06:01 Discharge instructions given to patient, Instructed on discharge instructions, follow up and referral plans. medication usage, Demonstrated understanding of instructions, follow-up care, medications, Prescriptions given X 1, 06:04 Patient left the ED. lg3 Signatures: Juliana Viveros RN RN [id number] Isaca Kay DO DO ms3 Donna Williamson [email or web address]
[2024-10-01 09:36] VITALS: BP 159/90; TEMP 98.1; O2SAT 100
== END 2024-10-01 06:04 | disposition home or self-care (01) ==
LOC: ER 05:38
DX: H60.92 Unspecified otitis externa, left ear (principal)
CPT/HCPCS: 99283